=== PATIENT | female | born 2000 | race Caucasian/White ===

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

== ENCOUNTER 2018-10-20 02:14 | Observation (INO) ==
[2018-10-20 02:58] VITALS: RESP 16
[2018-10-20] MEDS ORDERED: ACETAMINOPHEN 500 MG TABLET PO ONE (03:50)
[2018-10-20] MEDS ORDERED: ONDANSETRON 4 MG/2 ML VIAL IVP ONE (03:51)
[2018-10-20] MEDS ORDERED: Lactated Ringers 500 ML PRIMARY IV ONE ×2 (03:52→04:59)
[2018-10-20] MEDS ORDERED: Lactated Ringers 1,000 ML PRIMARY IV ONE ×2 (03:55→11:25)
[2018-10-20 05:09] LABS: Hemoglobin [HGB] 12.1 g/dL (12.0-16.0); MEAN CORPUSCULAR HEMOGLOBIN 31.5 PG (27-31); MEAN CORPUSCULAR HGB CONC 34.6 g/dL (33-37); MEAN CORPUSCULAR VOLUME 91.1 FL (81-99); MEAN PLATELET VOLUME 10.4 FL (7.4-12.2); RED BLOOD COUNT 3.84 10^6/uL (4.20-5.40)
[2018-10-20 05:11] LABS: BLOOD UREA NITROGEN 5 mg/dL (7-22); SERUM ALBUMIN 3.7 g/dL (3.5-4.8)
[2018-10-20] MEDS ORDERED: MORPHINE SULFATE 2 MG/1 ML IVP ONE (08:08)
--- NOTE | 2018-10-20 09:48 | DI ---
EXAM: US Abdomen Complete CLINICAL HISTORY: Abdominal pain for unknown reason: TECHNIQUE: Real-time ultrasound of the abdomen (complete) with image documentation. COMPARISON: No relevant prior studies available. FINDINGS: Liver: Liver diameter 14.4 cm. No visible parenchymal lesions. No intrahepatic biliary ductal dilatation. Gallbladder: Unremarkable. No gallstones. No wall thickening. No pericholecystic fluid. Common bile duct: Common bile duct diameter 5 mm, within normal limits. Pancreas: Unremarkable as visualized. Pancreatic body and tail are obscured by bowel gas. Kidneys: Right kidney length of 14.2 cm. Left kidney length of 11.8 cm. Normal cortical thickness. No visible stones. Severe right hydronephrosis. Spleen: Spleen length of 12.5 cm, borderline enlarged. Aorta: Unremarkable. Visualized portions appear unremarkable without evidence of aneurysm. Inferior vena cava: Unremarkable. IMPRESSION: Severe right hydronephrosis..
--- NOTE | 2018-10-20 09:55 | DI ---
EXAM: US Uterus, Limited CLINICAL HISTORY: Abdominal pain. Physician Notes: R/O Abruption and PATTY. TECHNIQUE: Real-time ultrasound of the maternal uterus (limited) with image documentation. COMPARISON: OB ultrasound dated 09/25/18 FINDINGS: Fetus: Single live intrauterine gestation. limb movement reported by the auto tester. Position: Vertex presentation. Heart rate: heart rate 147 bpm. Placenta: Anterior and left placenta. Placental grade 1. No evidence of retroplacental hematoma or abruption. Amniotic fluid: PATTY 15.6 cm. Cervix: Cervical length of 4.72 cm. IMPRESSION: 1. Single live intrauterine gestation. 2. No acute findings. No evidence of placental abruption. PATTY of 15.6 cm.
[2018-10-20] MEDS ORDERED: ACETAMINOPHEN WITH CODEINE 300 MG/30 MG TABLET PO PRN (10:03)
[2018-10-20 10:34] LABS: BILIRUBIN,URINE NEGATIVE (NEG); CLARITY,URINE CLEAR (CLEAR); COLOR,URINE YELLOW; GLUCOSE, URINE (UA) NEGATIVE (NEG); OCCULT BLOOD,URINE NEGATIVE (NEG); PROTEIN,URINE NEGATIVE (NEG); UROBILINOGEN,URINE 0.2 mg/dL (0.2)
[2018-10-20 10:36] LABS: BACTERIA,URINE RARE; RBC,URINE 0-1 /hpf; SQUAMOUS EPITHELIAL CELL,UR RARE; URINE SAMPLE TYPE CLEAN CATCH URINE; WBC,URINE 0-1
[2018-10-20 10:54] LABS: BAND NEUTROPHILS % 0.2 % (0-10); BASOPHILS % (MANUAL) 0.1 % (0-1); EOSINOPHILS % (MANUAL) 0.2 % (0-8); METAMYELOCYTES % 0 %; MYELOCYTES % 0 %; PROMYELOCYTES % 0 %
[2018-10-20 10:55] LABS: PLATELET MORPHOLOGY COMMENT NORMAL MORPHOLOGY (NORM); RBC MORPHOLOGY COMMENT NORMAL MORPHOLOGY (NORM); WBC MORPHOLOGY COMMENT NORMAL MORPHOLOGY (NORM)
--- NOTE | 2018-10-20 12:00 | OB.PROGRES ---
Intake - - Reason for Visit/Chief Complaint: Contractions Admitted From: Home - Estimated Due Date: 02/06/19 Gestational Age in Weeks and Days: 24 Weeks and 3 Days Para: 1 Term Births: 1 Births: 0 Number of Abortions (Spont./Elective): 0 Living Children: 1 - Labs Blood Type and Rh: B+ Maternal - Vital Signs Last Taken Vital Signs: Vital Signs - Last Taken Temperature 98.1 F 10/20/18 07:30 Pulse Rate 67 10/20/18 07:30 Respiratory Rate 16 10/20/18 07:30 Blood Pressure 117/64 10/20/18 07:30 Pulse Ox 98 10/20/18 07:30 - Vaginal Discharge Vaginal Bleeding Amount: None Vaginal Discharge Amount: None Vaginal Discharge Description: Thin Vaginal Discharge Color: White Vaginal Itching: No Monitoring - Uterine Activity Uterine Contraction Monitor Mode: External Contraction Frequency(minutes): 0 Contraction Duration (seconds): 0 Uterine Contraction Pattern: None Uterine Tone Measurement Phase: Soft Results - Labs CBC and BMP: 10/20/18 04:00 10/20/18 04:00 - Bedside Testing Bedside Urine Ketone: Large Bedside Urine Leukocytes Esterase: Moderate Bedside Urine Nitrite: Negative Bedside Urine Occult Blood: Negative Bedside Urine Protein: Negative Bedside Specific [place]: 1.030 - Imaging US Additional Imaging Details: EXAM: US Uterus, Limited CLINICAL HISTORY: Abdominal pain. Physician Notes: R/O Abruption and PATTY. TECHNIQUE: Real-time ultrasound of the maternal uterus (limited) with image documentation. COMPARISON: OB ultrasound dated 09/25/18 FINDINGS: Fetus: Single live intrauterine gestation. limb movement reported by the curing press operator. Position: Vertex presentation. Heart rate: heart rate 147 bpm. Placenta: Anterior and left placenta. Placental grade 1. No evidence of retroplacental hematoma or abruption. Amniotic fluid: PATTY 15.6 cm. Cervix: Cervical length of 4.72 cm. IMPRESSION: 1. Single live intrauterine gestation. 2. No acute findings. No evidence of placental abruption. PATTY of 15.6 cm. Dictated By: Jake Galan MD., PHD. Signed By: 10/20/18 0955 Jake Galan MD., PHD. EXAM: US Abdomen Complete CLINICAL HISTORY: Abdominal pain for unknown reason: TECHNIQUE: Real-time ultrasound of the abdomen (complete) with image documentation. COMPARISON: No relevant prior studies available. FINDINGS: Liver: Liver diameter 14.4 cm. No visible parenchymal lesions. No intrahepatic biliary ductal dilatation. Gallbladder: Unremarkable. No gallstones. No wall thickening. No pericholecystic fluid. Common bile duct: Common bile duct diameter 5 mm, within normal limits. Pancreas: Unremarkable as visualized. Pancreatic body and tail are obscured by bowel gas. Kidneys: Right kidney length of 14.2 cm. Left kidney length of 11.8 cm. Normal cortical thickness. No visible stones. Severe right hydronephrosis. Spleen: Spleen length of 12.5 cm, borderline enlarged. Aorta: Unremarkable. Visualized portions appear unremarkable without evidence of aneurysm. Inferior vena cava: Unremarkable. IMPRESSION: Severe right hydronephrosis.. Dictated By: Jake Galan MD., PHD. Signed By: 10/20/18 0948 Jake Galan MD., PHD. Bilateral ureteral jets visualized. Pre void volume 263.67 ml, post void residual 5.64 ml. Appendix not visualized. Ovaries not visualized. Assessment and Plan - Patient Problems (1) Abdominal pain affecting Current Visit: Yes Status: Acute Code(s): O26.899 - Other specified related conditions, unspecified trimester; R10.9 - Unspecified abdominal pain (2) Hydronephrosis Current Visit: Yes Status: Acute Code(s): N13.30 - Unspecified hydronephrosis Support Text: 18 yo at 24 weeks gestation presented with recurrence of lower abdominal pain with associated nausea, vomiting. Pain first started Monday night, she was seen in triage that night, vaginosis panel negative, urine unremarkable. States pain got better, never fully resolved then came back worse Monday night. Pain is not relieved by tylenol. She denies fever, chills, dysuria, hematuria, increased frequency. Her last BM was yesterday morning, was loose. Emesis last night was bilious, nonbloody. No known sick contacts, no recent travel or strange food exposure. States pain is constant, did feel like contraction pain. Exam notable for normal bowel sounds. TTP LLQ, RLQ, suprapubic. R flank tenderness. She was given zofran which did help her nausea and vomiting. Tylenol 1000 mg did not help the pain. She received a 1 L LR bolus and rested but awoke stating pain was unchanged. US this morning notable for normal PATTY, no evidence of abruption, severe R hydronephrosis. CBC notable for a normal white count, 9K, mild L shift. Unremarkable CMP. I discussed the case with Dr. Martinez, public works commissioner urologist for [facility]. He recommended repeating u/s to look specifically for ureteral jets. Jets were seen bilaterally. He did offer to see her in clinic on Monday when he is in town, sooner if anything worsens. She initially refused IV morphine, but was ok with trying T3. Will work on oral pain control. Repeat u/s showed bilateral ureteral jets ruling out an obstructive stone. The tech attempted to visualize the adnexa and appendix, did not see anything concerning.
[2018-10-20] MEDS ORDERED: Ondansetron ODT Tab 4 MG TAB PO PRN (12:15)
[2018-10-20] MEDS ORDERED: ONDANSETRON 4 MG/2 ML VIAL IVP PRN (12:15)
[2018-10-20] MEDS ORDERED: LIDOCAINE W/ SODIUM BICARB 0.5 ML SYR SUBD PRN (12:15)
[2018-10-20] MEDS ORDERED: CALCIUM CARBONATE 500 MG (TUMS) CHEWABLE TABLET PO PRN (12:15)
[2018-10-20] MEDS ORDERED: oxyCODONE IR Tab 5 MG TAB PO PRN (12:59)
[2018-10-20] MEDS ORDERED: fentaNYL Inj 100 MCG/2 ML VIAL IVP PRN (13:04)
[2018-10-21] MEDS ORDERED: Acetaminophen 1000mg Inj 1,000 MG/100 ML VIAL IV ONE (00:13)
[2018-10-21 05:25] LABS: BASOPHILS # (AUTO) 0.01 10*3/UL; BASOPHILS % (AUTO) 0.1 % (0-1); EOSINOPHILS # (AUTO) 0.08 10*3/UL; EOSINOPHILS % (AUTO) 1.1 % (0-8); Hematocrit [HCT] 32.5 % (37.0-47.0); Hemoglobin [HGB] 10.9 g/dL (12.0-16.0); LYMPHOCYTES # (AUTO) 1.68 10*3/uL; MEAN CORPUSCULAR HEMOGLOBIN 31.1 PG (27-31); MEAN CORPUSCULAR HGB CONC 33.5 g/dL (33-37); MEAN CORPUSCULAR VOLUME 92.9 FL (81-99); MEAN PLATELET VOLUME 9.9 FL (7.4-12.2); MONOCYTES # (AUTO) 0.52 10*3/UL (0.3-0.8); MONOCYTES % (AUTO) 7.2 % (5-15); NEUTROPHILS # (AUTO) 4.88 10*3/UL; NEUTROPHILS % (AUTO) 67.9 % (50-80)
[2018-10-21 05:30] LABS: PLATELET MORPHOLOGY COMMENT NORMAL MORPHOLOGY (NORM); RBC MORPHOLOGY COMMENT NORMAL MORPHOLOGY (NORM); WBC MORPHOLOGY COMMENT NORMAL MORPHOLOGY (NORM)
[2018-10-21] MEDS ORDERED: Prenatal Multivitamin Tab 1 TAB TAB PO SCH (09:00)
[2018-10-21 09:16] VITALS: TEMP 98.2
[2018-10-21 09:29] VITALS: BP 109/58; O2SAT 98
--- NOTE | 2018-10-21 09:37 | DCSUMMARY ---
Hospitalization Summary Admit Date: 10/20/18 Discharge Date: 10/21/18 Primary Diagnosis:: R hydronephrosis, abdominal pain in Hospital Course: 18 yo at 24 5/7 weeks gestation presented with nausea/vomiting/abdominal pain. See H&P for full details. Workup notable for R hydronephrosis, without evidence of obstruction. Over the course of her observation her vitals remained stable, afebrile, no tachycardia, normal BP. She was treated first with tylenol, then T3 without any pain relief. She was given an oxycodone 5mg which she said just gave her a MARTINI. She did receive a dose of 50 mcg fentanyl and then was able to sleep well through the night with pain relief. She also received 1 gram IV tylenol with relief. This morning she denies any pain. She has tolerated breakfast, been up ambulating. She feels comfortable with discharge to home. If continued pain thought to be 2/2 R hydronephrosis, Dr. Martinez is willing to see her as an Outpatient. Exam - Vitals Vital Signs: Vital Signs Temperature 98.2 F Temperature Source Oral Pulse Rate [Pulse Oximeter] 80 Pulse Rate 67 Respiratory Rate 16 Blood Pressure [Right Arm] 109/58 Pulse Ox 98 Oxygen Delivery Method Room Air Height 5 ft 7 in Weight 163 lb - General General Appearance: No Acute Distress, Cooperative - Head Head Exam: Normal Inspection - Eye Eye Exam: POSITIVE: Normal Appearance - Respiratory Respiratory Exam: POSITIVE: Clear to Auscultation - Bilaterally, Breathing Non Labored - Cardiovascular Cardiovascular Exam: POSITIVE: RRR - GI/Abdominal GI/Abdominal Exam: POSITIVE: Normal Bowel Sounds, Non Tender, Non Distended, Soft - Additional Exam Details: R CVA tenderness - Extremities Extremities Exam: POSITIVE: Normal Inspection, No Edema Present - Neurological Neurological Exam: POSITIVE: Alert, Oriented x 3 - Psychiatric Psychiatric Exam: POSITIVE: Flat Affect - Integumentary Integumentary Exam: POSITIVE: Normal Color Data Peritnent Studies: 10/20/18 10/20/18 10/20/18 02:49 04:00 04:00 WBC 9.23 Hgb 12.1 Hct 35.0 L Plt Count 193 Sodium 137 Potassium 4.2 Chloride 107 Carbon Dioxide 20 L Anion Gap 10 BUN 5 L Creatinine 0.4 L Estimated GFR > 60 BUN/Creatinine Ratio 12.50 Glucose 80 Calculated Osmolality 279.0 Calcium 9.0 Total Bilirubin 0.4 AST 18 ALT 17 Alkaline Phosphatase 69 Total Protein 6.3 Albumin 3.7 Globulin 2.5 Albumin/Globulin Ratio 1.40 Ur Collection Type Urine pH Ur Specific [place] Urine Protein Urine Glucose (UA) Urine Ketones Urine Occult Blood Urine Nitrate Urine Bilirubin Urine Urobilinogen Ur Leukocyte Esterase Urine RBC Urine WBC Ur Squamous Epith Cells Ur Renal Epithelial Cell Urine Crystals Urine Bacteria Urine Casts Urine Mucus Urine Trichomonas Urine Yeast Fibronectin Negative 10/20/18 10/21/18 09:54 05:15 WBC 7.20 Hgb 10.9 L Hct 32.5 L Plt Count 195 Sodium Potassium Chloride Carbon Dioxide Anion Gap BUN Creatinine Estimated GFR BUN/Creatinine Ratio Glucose Calculated Osmolality Calcium Total Bilirubin AST ALT Alkaline Phosphatase Total Protein Albumin Globulin Albumin/Globulin Ratio Ur Collection Type Clean catch urine Urine pH 7.0 Ur Specific [place] 1.015 Urine Protein Negative Urine Glucose (UA) Negative Urine Ketones 40 Urine Occult Blood Negative Urine Nitrate Negative Urine Bilirubin Negative Urine Urobilinogen 0.2 Ur Leukocyte Esterase Negative Urine RBC 0-1 Urine WBC 0-1 Ur Squamous Epith Cells Rare Ur Renal Epithelial Cell None Urine Crystals None Urine Bacteria Rare Urine Casts None Urine Mucus Rare Urine Trichomonas None Urine Yeast None Fibronectin Urine culture: <10,000 CFU of 3 different colonies, contaminated. Procedures: EXAM: US Uterus, Limited CLINICAL HISTORY: Abdominal pain. Physician Notes: R/O Abruption and PATTY. TECHNIQUE: Real-time ultrasound of the maternal uterus (limited) with image documentation. COMPARISON: OB ultrasound dated 09/25/18 FINDINGS: Fetus: Single live intrauterine gestation. limb movement reported by the design chief. Position: Vertex presentation. Heart rate: heart rate 147 bpm. Placenta: Anterior and left placenta. Placental grade 1. No evidence of retroplacental hematoma or abruption. Amniotic fluid: PATTY 15.6 cm. Cervix: Cervical length of 4.72 cm. IMPRESSION: 1. Single live intrauterine gestation. 2. No acute findings. No evidence of placental abruption. PATTY of 15.6 cm. Dictated By: Jake Galan MD., PHD. Signed By: 10/20/18 0955 Jake Galan MD., PHD. EXAM: US Abdomen Complete CLINICAL HISTORY: Abdominal pain for unknown reason: TECHNIQUE: Real-time ultrasound of the abdomen (complete) with image documentation. COMPARISON: No relevant prior studies available. FINDINGS: Liver: Liver diameter 14.4 cm. No visible parenchymal lesions. No intrahepatic biliary ductal dilatation. Gallbladder: Unremarkable. No gallstones. No wall thickening. No pericholecystic fluid. Common bile duct: Common bile duct diameter 5 mm, within normal limits. Pancreas: Unremarkable as visualized. Pancreatic body and tail are obscured by bowel gas. Kidneys: Right kidney length of 14.2 cm. Left kidney length of 11.8 cm. Normal cortical thickness. No visible stones. Severe right hydronephrosis. Spleen: Spleen length of 12.5 cm, borderline enlarged. Aorta: Unremarkable. Visualized portions appear unremarkable without evidence of aneurysm. Inferior vena cava: Unremarkable. IMPRESSION: Severe right hydronephrosis.. Dictated By: Jake Galan MD., PHD. Signed By: 10/20/18 0948 Jake Galan MD., PHD. Ureteral jets visualized b/l. Appendix and ovaries not visualized. Patient Problems - Patient Problem List (1) Abdominal pain affecting Current Visit: Yes Status: Acute Code(s): O26.899 - Other specified related conditions, unspecified trimester; R10.9 - Unspecified abdominal pain Category: Medical (2) Hydronephrosis Current Visit: Yes Status: Acute Code(s): N13.30 - Unspecified hydronephrosis Support Text: 18 yo at 24 5/7 weeks gestation with markedly improved R sided abdominal pain. Presentation most consistent with hydronephrosis of . Rx for zofran odt and T3 #15 sent to pharmacy. Close f/u with her primary OB. Consider f/u with Urology if continued pain. Category: Medical
== END 2018-10-21 09:40 | disposition home or self-care (01) ==
LOC: OBOP 02:14 → OBIP 02:14
PROVIDERS: ADMIT Student in an Organized Health Care Education/Training Program; ATTEND Student in an Organized Health Care Education/Training Program

== ENCOUNTER 2019-01-22 05:40 | Observation (INO) ==
[2019-01-22] MEDS ORDERED: Ondansetron ODT Tab 4 MG TAB PO PRN (13:58)
[2019-01-22] MEDS ORDERED: ONDANSETRON 4 MG/2 ML VIAL IVP PRN (13:58)
[2019-01-22] MEDS ORDERED: LIDOCAINE W/ SODIUM BICARB 0.5 ML SYR SUBD PRN (13:58)
[2019-01-22] MEDS ORDERED: CALCIUM CARBONATE 500 MG (TUMS) CHEWABLE TABLET PO PRN (13:58)
[2019-01-22] MEDS ORDERED: HYDROcodone-APAP 5 MG -325 MG TABLET PO PRN (14:01)
[2019-01-22 16:50] VITALS: BP 107/61; RESP 18; TEMP 98.6; O2SAT 100
[2019-01-23] MEDS ORDERED: Prenatal Multivitamin Tab 1 TAB TAB PO SCH (09:00)
--- NOTE | 2019-02-03 14:10 | OB.PROGRES ---
Date of Service: 01/22/19 Time of Service: 18:30 Interval History: Tracy presented to labor and delivery this morning with reportedly more painful and regular contractions. She denies any vaginal bleeding or gushes of fluid. She reports that her labor with her last child went quickly in active labor. She lives in [place] and is concerned about a faster labor this time, in addition to living 25 [address] from the hospital. She is admitted for monitoring and observation for labor--ie with cervical change. Objective - Cervical Exam Cervical Exam: /-1 per RN, this is consistent with her intermittent exams over the past 8 hours. [place]: irregular, palpating mild to moderate. Heart Rate: category 1 strip, no decels noted. Heart Rate Interpretation Category: Category I - Vital Signs Last Taken Vital Signs: Vital Signs - Last Taken Temperature 98.6 F 01/22/19 16:20 Pulse Rate 96 01/22/19 16:20 Respiratory Rate 18 01/22/19 16:20 Blood Pressure 107/61 01/22/19 16:20 Pulse Ox 100 01/22/19 16:20 Assessment and Plan - Patient Problems (1) Prolonged latent phase of labor Status: Acute Code(s): O62.0 - Primary inadequate contractions - Assessment / Plan Additional Assessment/Plan Details: -given no cervical change in the past several hours in a multiparous patient, will allow her to be discharged home. Offered a stay at [facility], the pt declines and will go home to [place]. -labor precautions again discussed. -f/u: as scheduled in the office.
== END 2019-01-22 17:25 | disposition home or self-care (01) ==
LOC: OBIP 05:40 → OBOP 05:40
PROVIDERS: ADMIT Family Medicine; ATTEND Family Medicine

== ENCOUNTER 2019-01-22 21:17 | Observation (INO) ==
[2019-01-22] MEDS ORDERED: Ondansetron ODT Tab 4 MG TAB PO PRN (21:43)
[2019-01-22] MEDS ORDERED: LIDOCAINE W/ SODIUM BICARB 0.5 ML SYR SUBD PRN (21:43)
[2019-01-22] MEDS ORDERED: Lactated Ringers 1,000 ML PRIMARY IV ONE (21:43)
[2019-01-22] MEDS ORDERED: CALCIUM CARBONATE 500 MG (TUMS) CHEWABLE TABLET PO PRN (21:43)
[2019-01-22] MEDS ORDERED: ONDANSETRON 4 MG/2 ML VIAL IVP PRN (21:43)
[2019-01-22 22:24] LABS: Hematocrit [HCT] 30.3 % (37.0-47.0); Hemoglobin [HGB] 9.9 g/dL (12.0-16.0); MEAN CORPUSCULAR HGB CONC 32.7 g/dL (33-37); MEAN CORPUSCULAR VOLUME 88.3 FL (81-99); MEAN PLATELET VOLUME 10.3 FL (7.4-12.2); RED BLOOD COUNT 3.43 10^6/uL (4.20-5.40)
[2019-01-22 22:33] LABS: BLOOD UREA NITROGEN 8 mg/dL (7-22); SERUM ALBUMIN 3.2 g/dL (3.5-4.8); Uric Acid 5.6 mg/dl (2.5-6.2)
[2019-01-23 02:30] VITALS: RESP 18
[2019-01-23 07:28] VITALS: BP 103/66; TEMP 98.2; O2SAT 100
[2019-01-23] MEDS ORDERED: Acet/Butalb/Caff 325-50-40 1 TAB TABLET PO PRN (08:31)
[2019-01-23] MEDS ORDERED: Prenatal Multivitamin Tab 1 TAB TAB PO SCH (09:00)
[2019-01-23 09:34] LABS: Hematocrit [HCT] 30.6 % (37.0-47.0); MEAN CORPUSCULAR HGB CONC 32.7 g/dL (33-37); MEAN CORPUSCULAR VOLUME 88.7 FL (81-99); MEAN PLATELET VOLUME 10.9 FL (7.4-12.2); RED BLOOD COUNT 3.45 10^6/uL (4.20-5.40)
[2019-01-23 10:23] LABS: BLOOD UREA NITROGEN 6 mg/dL (7-22); SERUM ALBUMIN 3.1 g/dL (3.5-4.8)
[2019-01-23] MEDS ORDERED: POTASSIUM CHLORIDE 20 MEQ TAB PO ONE (12:40)
--- NOTE | 2019-01-23 15:22 | PTI REPORT ---
Thank you for the referral of Tracy Fernandez. She was seen on 01/23/19 for an inpatient evaluation secondary to right sciatica and right back pain. SUBJECTIVE: The patient is a 18-year-old female. The patient is experiencing pain and numbness in the right lower extremity which dissipates with walking. The patient also has varicose veins in the right groin. PAST MEDICAL HISTORY: Past medical history can be found in the patient's medical record. OBJECTIVE FINDINGS: The patient showed a reduction in symptoms in left sidelying with improvement of lumbar facet unloading positioning. During R hamstring stretch pt felt contraction ASSESSMENT: The patient is 38 weeks with right sciatica and right back pain and shows potential for improvement with positioning education and use of a Mom-EZ brace. education on compression shorts for pain in her groin and offloading the area. The patient has a good prognosis for therapy. Problem List: Right back pain Right sciatica Short-Term Goals: To be met by discharge from inpatient: Patient will be educated on positioning to alleviate symptoms and proper application of the Mom-EZ brace. Long-Term Goals: To be met following discharge from inpatient: Patient will return to home per prior level of function. TREATMENT PLAN: Patient will be seen one time per day during the week and one time per day over the weekend as an inpatient to address the above goals and objectives. INITIAL TREATMENT: Treatment today consisted of the initial evaluation followed by patient positioning education, sidleying axial separation R side up. Kinesio taping for lumbar support and glut med facilitation. Dictated by: ANDERSON Wayne Supervised by: TRAVIS Rich
--- NOTE | 2019-02-03 14:19 | OB.PROGRES ---
Date of Service: 01/23/19 Time of Service: 15:30 Interval History: Pt is a 19 yo at 37 6/7 weeks by early u/s who has been seen several times in labor and delivery for a prolonged latent phase of labor. She has had no cervical change as of late. Her cervix late last night was 4/60/-1 and remains the same today. Pt denies any vag bleeding, gushes of fluid or abnormal discharge. Baby has been active. Objective - Cervical Exam Cervical Exam: 460/-1/vertex [place]: irregular contractions, mild to moderate to palpation. Heart Rate Interpretation Category: Category I - Labs CBC and BMP: 01/23/19 08:37 01/23/19 Unknown - Vital Signs Last Taken Vital Signs: Vital Signs - Last Taken Temperature 98.2 F 01/23/19 07:00 Pulse Rate 87 01/23/19 07:00 Respiratory Rate 18 01/23/19 07:00 Blood Pressure 103/66 01/23/19 07:00 Pulse Ox 100 01/23/19 07:00 Assessment and Plan - Patient Problems (1) Prolonged latent phase of labor Status: Acute Code(s): O62.0 - Primary inadequate contractions - Assessment / Plan Additional Assessment/Plan Details: -continues to have no cervical change and pt and her spouse are aware that I will not augment her until she is past 39 weeks unless there are extenuating circumstances. She is scheduled for induction of labor at 39 weeks. -GBS negative. -labor precautions. -f/u: as scheduled in the office. DISCHARGE NOTE: ADMITTING DIAGNOSIS: Prolonged latent phase of labor. GBS negative. DISCHARGE DIAGNOSIS: same. OUTCOME: monitoring of contractions and status, as well as cervical checks to document change. No cervical change was noted over 12+ hours. DIET: regular F/u: as scheduled in the office. DISPO: home.
== END 2019-01-23 13:43 | disposition home or self-care (01) ==
LOC: OBIP 21:17 → OBOP 21:17
PROVIDERS: ADMIT Family Medicine; ATTEND Family Medicine